=== PATIENT | male | born 1985 | race Two or more races ===

== ENCOUNTER 2019-01-10 21:10 | Emergency (ER) | payer MEDICAID ==
[~2019-01-10] VITALS: Ht 177.8 cm; Wt 82.0 kg
[2019-01-10 21:30] VITALS: BP 145/90
== END 2019-01-11 02:13 | disposition left against medical advice (07) ==
LOC: ER 21:28
DX: F10.220 Alcohol dependence with intoxication, uncomplicated (principal); Z53.21 Procedure and treatment not carried out due to patient leaving prior to being seen by health care provider; Y90.9 Presence of alcohol in blood, level not specified

== ENCOUNTER 2019-12-30 09:36 | Emergency (ER) | payer MEDICAID ==
[~2019-12-30] VITALS: Ht 172.7 cm; Wt 90.0 kg
[2019-12-30 12:38] LABS: HEMATOCRIT 43.2 % (42.0-52.0); HEMOGLOBIN 14.4 g/dL (14.0-18.0); MEAN CORPUSCULAR HEMOGLOBIN 26.6 pg (28.0-32.0); MEAN CORPUSCULAR VOLUME 79.9 fL (80.0-94.0); PLATELET 150 x1000/uL (130-400); RED BLOOD CELL COUNT 5.41 mill/uL (4.7-6.1); RED CELL DISTRIBUTION WIDTH 18.5 % (11.6-14.6)
[2019-12-30 12:44] LABS: CHLORIDE 111 mEq/L (98-107)
[2019-12-30 13:04] LABS: ETHANOL BLOOD 418 mg/dL
[2019-12-30 13:27] LABS: *AMPHETAMINES SCREEN URINE NEGATIVE (NEGATIVE); *BARBITURATES SCREEN URINE NEGATIVE (NEGATIVE)
[2019-12-30 13:28] LABS: *BENZODIAZEPINES SCREEN URINE NEGATIVE (NEGATIVE); *COCAINE SCREEN URINE NEGATIVE (NEGATIVE); METHADONE URINE SCREEN NEGATIVE (NEGATIVE); OPIATES URINE SCREEN NEGATIVE (NEGATIVE); PHENCYCLIDINE URINE SCREEN NEGATIVE (NEGATIVE)
[2019-12-30 13:29] LABS: CANNABINOID URINE SCREEN NEGATIVE (NEGATIVE)
[2019-12-30 18:56] VITALS: BP 131/86
== END 2019-12-30 19:00 | disposition home or self-care (01) ==
LOC: ER 09:36
DX: F10.229 Alcohol dependence with intoxication, unspecified (principal); Y90.0 Blood alcohol level of less than 20 mg/100 ml
CPT/HCPCS: 36415; 80053; 80305; 80320; 85027; 99284; G0480

== ENCOUNTER 2020-02-28 11:59 | Emergency (ER) | payer MEDICAID ==
[~2020-02-28] VITALS: Ht 180.3 cm; Wt 86.0 kg
[2020-02-28] MEDS ORDERED: ONDANSETRON HCL 4MG/2ML INJ IV ONE (12:45)
[2020-02-28] MEDS ORDERED: FOLIC ACID 1 MG, THIAMINE HCL 100 MG, MVI, ADULT NO.1 10 ML in DEXTROSE 5% WATER 1,000 ML IV ONE ×4 (12:45)
[2020-02-28 12:59] LABS: BASOPHILS % 0.5 % (0.0-2.0); EOSINOPHILS % 0.1 % (0.0-5.0); HEMATOCRIT. 43.2 % (42.0-52.0); MEAN CORPUSCULAR HEMOGLOBIN 26.8 pg (28.0-32.0); MEAN CORPUSCULAR VOLUME 77.2 fL (80.0-94.0); MEAN PLATELET VOLUME 8.6 fl (7.4-10.4); MONOCYTES % 11.5 % (2.0-8.0); NEUTROPHILS % 62.9 % (40.0-76.0); PLATELET 136 x1000/uL (130-400); RED BLOOD CELL COUNT 5.59 mill/uL (4.7-6.1); RED CELL DISTRIBUTION WIDTH 17.6 % (11.6-14.6)
[2020-02-28 13:06] LABS: CHLORIDE 93 mEq/L (98-107)
[2020-02-28 13:32] LABS: ETHANOL BLOOD 378 mg/dL
[2020-02-28 13:46] LABS: CLARITY URINE CLEAR (CLEAR); COLOR URINE YELLOW (YELLOW); KETONES URINE NEGATIVE (NEGATIVE); LEUKOCYTE ESTERASE URINE NEGATIVE (NEGATIVE); NITRITE URINE NEGATIVE (NEGATIVE); OCCULT BLOOD URINE NEGATIVE (NEGATIVE); PROTEIN URINE NEGATIVE (NEGATIVE); SPECIFIC GRAVITY URINE 1.003 (1.005-1.030)
[2020-02-28 14:02] LABS: *AMPHETAMINES SCREEN URINE NEGATIVE (NEGATIVE); *BARBITURATES SCREEN URINE NEGATIVE (NEGATIVE); *BENZODIAZEPINES SCREEN URINE NEGATIVE (NEGATIVE); *COCAINE SCREEN URINE NEGATIVE (NEGATIVE)
[2020-02-28 14:03] LABS: CANNABINOID URINE SCREEN NEGATIVE (NEGATIVE); METHADONE URINE SCREEN NEGATIVE (NEGATIVE); OPIATES URINE SCREEN NEGATIVE (NEGATIVE); PHENCYCLIDINE URINE SCREEN NEGATIVE (NEGATIVE)
[2020-02-28] MEDS ORDERED: POTASSIUM CHLORIDE 20MEQ TABLET SR PO ONE (15:30)
[2020-02-28] MEDS ORDERED: KCL 20MEQ/100ML PREMIX 100 ML IV ONE (15:30)
[2020-02-28 16:25] VITALS: BP 130/65
== END 2020-02-28 16:42 | disposition home or self-care (01) ==
LOC: ER 12:13
DX: F10.229 Alcohol dependence with intoxication, unspecified (principal); Y90.8 Blood alcohol level of 240 mg/100 ml or more
CPT/HCPCS: 36415; 80053; 80305; 80307; 80320; 80329; 81003; 85025; 96365; 96366; 96375; 99284; J2405; J3411; J3480; J3490; J7070; G0480

== ENCOUNTER 2020-02-28 18:50 | Emergency (ER) | payer MEDICAID ==
[~2020-02-28] VITALS: Ht 165.1 cm; Wt 80.0 kg
[2020-02-28] MEDS ORDERED: IBUPROFEN 400MG TABLET PO ONE (19:45)
[2020-02-28 20:02] LABS: BASOPHILS % 0.7 % (0.0-2.0); EOSINOPHILS % 0.1 % (0.0-5.0); HEMATOCRIT. 42.6 % (42.0-52.0); HEMOGLOBIN. 14.6 g/dL (14.0-18.0); LYMPHOCYTES % 31.5 % (20.0-50.0); MEAN CORPUSCULAR HEMOGLOBIN 26.5 pg (28.0-32.0); MEAN CORPUSCULAR VOLUME 77.2 fL (80.0-94.0); MEAN PLATELET VOLUME 8.8 fl (7.4-10.4); MONOCYTES % 11.1 % (2.0-8.0); NEUTROPHILS % 56.6 % (40.0-76.0); PLATELET 139 x1000/uL (130-400); RED BLOOD CELL COUNT 5.52 mill/uL (4.7-6.1); RED CELL DISTRIBUTION WIDTH 18.1 % (11.6-14.6)
[2020-02-28 20:05] LABS: CHLORIDE 94 mEq/L (98-107)
[2020-02-28 20:26] LABS: ETHANOL BLOOD 394 mg/dL
[2020-02-28] MEDS ORDERED: KCL 20MEQ/100ML PREMIX 100 ML IV ONE (20:45)
[2020-02-28] MEDS ORDERED: ONDANSETRON HCL 4MG/2ML INJ IV ONE (20:45)
[2020-02-28] MEDS ORDERED: SODIUM CHLORIDE 0.9% 1,000 ML IV ONE (20:45)
[2020-02-28] MEDS ORDERED: POTASSIUM CHLORIDE 20MEQ TABLET SR PO ONE (20:45)
[2020-02-28 21:00] VITALS: BP 126/72
== END 2020-02-29 00:18 | disposition left against medical advice (07) ==
LOC: ER 18:50
DX: S00.212A Abrasion of left eyelid and periocular area, initial encounter (principal); F10.229 Alcohol dependence with intoxication, unspecified; E87.6 Hypokalemia; Y90.8 Blood alcohol level of 240 mg/100 ml or more; W01.0XXA Fall on same level from slipping, tripping and stumbling without subsequent striking against object, initial encounter; Y93.89 Activity, other specified; Y92.488 Other paved roadways as the place of occurrence of the external cause
CPT/HCPCS: 36415; 70450; 80053; 80320; 85025; 96365; 96375; 99284; J2405; J3480; J7030; G0480

== ENCOUNTER 2023-06-03 22:20 | Emergency (ER) | payer MEDICAID ==
[~2023-06-03] VITALS: Ht 175.3 cm; Wt 90.0 kg
[2023-06-03 22:22] VITALS: O2SAT 98
[2023-06-04 04:44] VITALS: TEMP 98.4
[2023-06-04] MEDS ORDERED: ACETAMINOPHEN 325MG TABLET PO ONE (04:45)
[2023-06-04 04:58] VITALS: BP 123/85; PULSE 86; RESP 15
== END 2023-06-04 04:59 | disposition home or self-care (01) ==
LOC: ER 22:20
DX: T51.91XA Toxic effect of unspecified alcohol, accidental (unintentional), initial encounter (principal); R51.9 Headache, unspecified; Y92.9 Unspecified place or not applicable
CPT/HCPCS: 99284

== ENCOUNTER 2023-07-06 13:42 | Emergency (ER) | payer MEDICAID ==
[~2023-07-06] VITALS: Ht 167.6 cm; Wt 78.0 kg
[2023-07-06 13:44] VITALS: BP 132/87; PULSE 100; RESP 14; TEMP 98.7; O2SAT 99
== END 2023-07-06 17:26 | disposition left against medical advice (07) ==
LOC: ER 13:42
DX: S09.90XA Unspecified injury of head, initial encounter (principal); F10.20 Alcohol dependence, uncomplicated; W18.30XA Fall on same level, unspecified, initial encounter; Y93.89 Activity, other specified; Y92.89 Other specified places as the place of occurrence of the external cause; Y99.8 Other external cause status; Y90.9 Presence of alcohol in blood, level not specified
CPT/HCPCS: 99281; Z7610; 99282

== ENCOUNTER 2023-07-22 05:30 | Inpatient (IN) | payer MEDICAID ==
[~2023-07-22] VITALS: Ht 165.1 cm; Wt 81.4 kg
[2023-07-22 06:01] LABS: BASOPHILS % 1.9 % (0.0-2.0); EOSINOPHILS % 0.1 % (0.0-5.0); HEMATOCRIT. 39.1 % (42.0-52.0); HEMOGLOBIN. 13.3 g/dL (14.0-18.0); LYMPHOCYTES % 9.9 % (20.0-50.0); MEAN CORPUSCULAR HEMOGLOBIN 29.8 pg (28.0-32.0); MEAN CORPUSCULAR VOLUME 87.6 fL (80.0-94.0); MEAN PLATELET VOLUME 9.3 fl (7.4-10.4); MONOCYTES % 9.4 % (2.0-8.0); NEUTROPHILS % 78.7 % (40.0-76.0); PLATELET 302 x1000/uL (130-400); RED BLOOD CELL COUNT 4.47 mill/uL (4.7-6.1); WHITE BLOOD COUNT 8.2 x1000/uL (4.5-11.0)
[2023-07-22 06:06] LABS: CHLORIDE 100 mEq/L (98-107); INDEX HEMOLYSI 1 (1-3); INDEX ICTERIC 2 (1-4); INDEX LIPEMIC 1 (1-3); SODIUM 134 mEq/L (136-145)
[2023-07-22 06:17] LABS: ALANINE AMINOTRANSFERASE 138 IU/L (13-61); ALBUMIN 2.9 g/dL (3.4-5.0); ASPARTATE AMINOTRANSFERASE 216 IU/L (15-37); BILIRUBIN TOTAL 4.5 mg/dL (0.1-1.0); CALCIUM 8.2 mg/dL (8.5-10.1); CARBON DIOXIDE 25 mEq/L (21-32); CREATININE 0.6 mg/dL (0.6-1.3); GLUCOSE 109 mg/dL (70-105); PROTEIN TOTAL 7.4 g/dL (6.0-8.3); TROPONIN I HIGH SENSITIVITY 5 ng/L (<78); UREA NITROGEN BLOOD 9 mg/dL (7-21)
[2023-07-22 06:30] LABS: POTASSIUM 2.6 mEq/L (3.5-5.1)
[2023-07-22] MEDS ORDERED: POTASSIUM CHLORIDE 20MEQ TABLET SR PO ONE (07:00)
[2023-07-22] MEDS ORDERED: FOLIC ACID 1 MG, THIAMINE HCL 100 MG, MVI, ADULT NO.1 10 ML in DEXTROSE 5% WATER 1,000 ML IV ONE ×4 (07:00)
[2023-07-22 07:02] LABS: CLARITY URINE CLEAR (CLEAR); COLOR URINE AMBER (YELLOW); GLUCOSE URINE NEGATIVE (NEGATIVE); KETONES URINE NEGATIVE (NEGATIVE); PROTEIN URINE TRACE (NEGATIVE); SPECIFIC GRAVITY URINE 1.025 (1.005-1.030)
[2023-07-22 07:03] LABS: LEUKOCYTE ESTERASE URINE TRACE (NEGATIVE); NITRITE URINE POSITIVE (NEGATIVE); OCCULT BLOOD URINE NEGATIVE (NEGATIVE); UROBILINOGEN URINE 4 E.U./dL (0.2-1.0)
[2023-07-22 07:08] LABS: RBC URINE NONE SEEN /hpf (0-2); WBC URINE NONE SEEN /hpf (0-2)
[2023-07-22 07:09] LABS: BACTERIA URINE TRACE; SQUAMOUS EPITHELIAL CELL URINE FEW /lpf (RARE/1+)
[2023-07-22] MEDS ORDERED: LORAZEPAM 2MG/ML CPJ IV ONE (07:15)
[2023-07-22] MEDS ORDERED: CEFTRIAXONE 1GM PREMIX 50 ML IV ONE (07:45)
[2023-07-22] MEDS ORDERED: ACETAMINOPHEN 325MG TABLET PO PRN (11:15)
[2023-07-22] MEDS ORDERED: ONDANSETRON HCL 4MG/2ML INJ IV PRN (11:15)
[2023-07-22] MEDS: CHLORDIAZEPOXIDE 25MG CAPSULE PO SCH ×2 (14:33→20:43)
[2023-07-22] MEDS ORDERED: CEFTRIAXONE 1GM PREMIX 50 ML IV SCH (16:15)
[2023-07-22] MEDS ORDERED: POTASSIUM CHLORIDE 20MEQ TABLET SR PO NR (16:15)
[2023-07-22 17:00] VITALS: BP 111/74; PULSE 88; RESP 18; TEMP 97.8
[2023-07-22 20:00] VITALS: BP 109/77; PULSE 75; RESP 18; TEMP 97.3
[2023-07-22] MEDS: DEXT 5%/0.45% NACL 1000ML 1,000 ML IV SCH (20:01)
[2023-07-22] MEDS: LORAZEPAM 2MG/ML CPJ IV PRN (20:42)
[2023-07-22 21:12] LABS: HEPATITIS B SURFACE ANTIGEN NEGATIVE
[2023-07-22 21:41] LABS: HEPATITIS C VIR.AB 0.12 INDEXVAL (0.00-0.80)
[2023-07-23] VITALS: BP 115/84; PULSE 66; RESP 19; TEMP 98.6
[2023-07-23 00:53] LABS: *AMPHETAMINES SCREEN URINE NEGATIVE (NEGATIVE); *BARBITURATES SCREEN URINE NEGATIVE (NEGATIVE); *BENZODIAZEPINES SCREEN URINE NEGATIVE (NEGATIVE); *COCAINE SCREEN URINE NEGATIVE (NEGATIVE); CANNABINOID URINE SCREEN NEGATIVE (NEGATIVE); ECSTASY MDMA SCREEN URINE NEGATIVE (NEGATIVE); METHADONE URINE SCREEN NEGATIVE (NEGATIVE); OPIATES URINE SCREEN NEGATIVE (NEGATIVE); PHENCYCLIDINE URINE SCREEN NEGATIVE (NEGATIVE)
[2023-07-23 04:00] VITALS: BP 117/76; PULSE 69; RESP 20; TEMP 97.7
[2023-07-23] MEDS: CHLORDIAZEPOXIDE 25MG CAPSULE PO SCH ×3 (05:53→21:25)
[2023-07-23] MEDS: CEFTRIAXONE 1,000 MG in DEXTROSE 5% WATER 50 ML IV SCH (05:54)
[2023-07-23] MEDS: LORAZEPAM 2MG/ML CPJ IV PRN (06:28)
[2023-07-23 08:00] VITALS: BP 98/67; PULSE 96; RESP 19; TEMP 97.7
[2023-07-23 08:23] LABS: CHLORIDE 103 mEq/L (98-107); INDEX HEMOLYSI 1 (1-3); INDEX ICTERIC 2 (1-4); INDEX LIPEMIC 1 (1-3); SODIUM 137 mEq/L (136-145)
[2023-07-23 08:37] LABS: CALCIUM 7.8 mg/dL (8.5-10.1); CARBON DIOXIDE 22 mEq/L (21-32); CREATININE 0.6 mg/dL (0.6-1.3); GLUCOSE 88 mg/dL (70-105); UREA NITROGEN BLOOD 7 mg/dL (7-21)
[2023-07-23 08:48] LABS: POTASSIUM 2.5 mEq/L (3.5-5.1)
[2023-07-23] MEDS ORDERED: FOLIC ACID 1 MG, THIAMINE HCL 100 MG, MVI, ADULT NO.1 10 ML in DEXTROSE 5% WATER 1,000 ML IV SCH ×4 (09:00)
[2023-07-23] MEDS: DEXT 5%/0.45% NACL 1000ML 1,000 ML IV SCH (09:05)
[2023-07-23] MEDS ORDERED: POTASSIUM CHLORIDE 20MEQ TABLET SR PO NR ×3 (09:30→15:30)
[2023-07-23] MEDS: FOLIC ACID 1 MG, THIAMINE HCL 100 MG, MVI, ADULT NO.1 10 ML in DEXTROSE 5% WATER 1,000 ML IV SCH ×4 (10:59)
[2023-07-23 12:00] VITALS: BP 118/72; PULSE 85; RESP 18; TEMP 97.8
[2023-07-23] MEDS ORDERED: LEVO-65 MT (14:33)
[2023-07-23 16:00] VITALS: BP 115/72; PULSE 75; RESP 18; TEMP 97.7
[2023-07-23 20:00] VITALS: BP 120/80; PULSE 78; RESP 18; TEMP 97.7
[2023-07-23 22:01] LABS: POTASSIUM 3.4 mEq/L (3.5-5.1)
[2023-07-24] VITALS: BP 124/84; PULSE 72; RESP 18; TEMP 97.8
[2023-07-24] MEDS: LORAZEPAM 2MG/ML CPJ IV PRN (02:33)
[2023-07-24 04:00] VITALS: BP 116/76; PULSE 76; RESP 18; TEMP 98
[2023-07-24] MEDS: CEFTRIAXONE 1,000 MG in DEXTROSE 5% WATER 50 ML IV SCH (06:26)
[2023-07-24] MEDS: CHLORDIAZEPOXIDE 25MG CAPSULE PO SCH (06:26)
[2023-07-24 08:00] VITALS: BP 142/99; PULSE 100; RESP 20; TEMP 97.8
[2023-07-24] MEDS: FOLIC ACID 1 MG, THIAMINE HCL 100 MG, MVI, ADULT NO.1 10 ML in DEXTROSE 5% WATER 1,000 ML IV SCH ×4 (10:01)
[2023-07-24] MEDS ORDERED: POTASSIUM CHLORIDE 20MEQ/PACKET PO NR (11:00)
[2023-07-24 12:00] VITALS: BP 119/93; PULSE 101; RESP 20; TEMP 97.2
[2023-07-24 13:16] VITALS: BP 110/93; PULSE 81; TEMP 97.2; O2SAT 100
== END 2023-07-24 15:30 | disposition home or self-care (01) | DRG 282 ==
LOC: ER 05:30 → 7WST 08:32 → EDBEDREQ 08:47 → EDBEDREQTM 08:47
PROVIDERS: ADMIT Internal Medicine; ATTEND Internal Medicine
DX: K85.90 Acute pancreatitis without necrosis or infection, unspecified (principal); E87.1 Hypo-osmolality and hyponatremia; N39.0 Urinary tract infection, site not specified; F10.239 Alcohol dependence with withdrawal, unspecified; E87.6 Hypokalemia; E66.9 Obesity, unspecified; R74.01 Elevation of levels of liver transaminase levels; Z68.29 Body mass index [BMI] 29.0-29.9, adult
CPT/HCPCS: 36415; 76700; 80048; 80053; 80305; 81003; 82962; 83735; 84132; 84484; 85025; 86803; 87340; 93005; 99285; J0696; J2060; J3411; J3490; J7060; J7070